=== PATIENT | female | born 1960 | race Caucasian/White ===

== ENCOUNTER → 2016-07-16 | Outpatient (CLI) | payer MEDICARE ==
[~2016-07-16] MED LIST: ALBUTEROL0.09 MG/A1 IH; AUGMENTIN 875-1 EACH PO; BISOPROLOL 5MG T5 MG PO; CELEBREX 200MG200 MG PO; CELEXA10 M1 PO; CELEXA10 MG PO; CLONAZEPAM0.5 M1 PO; CLONIDINE0.1 MG PO; GABAPENTIN100 M1 PO; HYDROCODONE-APA1 TA2 PO; NOMEDS *; PHENERGAN 25MG.25 M1 PO; PREDNISONE50 MG PO; VALIUM 10MG TAB10 MG PO; ZANAFLEX4 MG NG
== END ==
LOC: LAB 07:05
DX: E78.5 Hyperlipidemia, unspecified (principal)

== ENCOUNTER → 2016-10-20 | Outpatient (CLI) | payer MEDICARE, MEDICAID ==
[2016-10-20 12:34] LABS: BUN 12 mg/dL (7-18)
[2016-10-20 12:37] LABS: GFR (ESTIMATED) 57 ML/MIN (59-)
--- NOTE | 2016-10-20 17:15 | RADIOLOGY REPORT PS360 ---
CT CHEST W/ CONTRAST INDICATION: Chest pain, shortness of breath, hemothorax SOB,CP,HEMOTHORAX ORDERING PHYSICIAN: Paulino Mendez MD PATIENT AGE: 56 years COMPARISON: 11/21/2015 TECHNIQUE: Axial images are obtained following the intravenous administration of 75 mL's of Isovue-370 contrast. Sagittal and coronal reformatted images are reviewed as well. FINDINGS: No mediastinal or hilar mass or adenopathy. There is some calcification of the aortic root with minimal ectasia of the proximal ascending aorta measuring up to 3.8 cm. No central pulmonary embolus apparent. No evidence of aortic dissection. Scattered atheromatous calcification noted involving the thoracic aorta. Atheromatous changes involve the ostia of the great vessels but no significant stenosis. There is a small amount of gas in the esophagus which may be seen with gastroesophageal reflux disease. Centrilobular and paraseptal emphysematous changes are noted with some mild biapical fibrosis. There are scattered calcified granulomas. No suspicious pulmonary nodules are evident. No effusions or infiltrates moderate fibrotic changes are present in the lung bases. Upper abdominal images show moderate dilatation of the common bile duct and intrahepatic biliary radicles. Patient has had a prior cholecystectomy. Consider abdomen CT with contrast for further evaluation. MRCP may also be needed. There is thoracolumbar scoliosis convex left. IMPRESSION: 1. Emphysema with old granulomatous disease. 2. Mild ectasia of the ascending aorta with atherosclerotic changes of the aorta. No dissection or aneurysmal dilatation. 3. Small amount of gas in esophagus nonspecific but may be seen with reflux. 4. Intra and extrahepatic biliary dilatation. Consider abdomen CT and possibly MRCP for further evaluation if clinically warranted
== END ==
LOC: RT 12:17
PROVIDERS: Internal Medicine
DX: R06.02 Shortness of breath (principal); R07.9 Chest pain, unspecified; J94.2 Hemothorax
CPT/HCPCS: Q9967

== ENCOUNTER → 2017-01-10 | Outpatient (CLI) | payer MEDICARE, MEDICAID ==
[2017-01-10 19:13] LABS: AMPHETAMINES/METAMPHETAMINES NEGATIVE ng/mL (<1000)
[2017-01-15 18:36] LABS: Alprazolam Negative (Cutoff=100); Benzodiazepines Negative ng/mL (Cutoff=100); Clonazepam Negative (Cutoff=100); Flurazepam Negative (Cutoff=100); Lorazepam Negative (Cutoff=100); Midazolam Negative (Cutoff=100); Temazepam Negative (Cutoff=100); Triazolam Negative (Cutoff=100)
== END ==
LOC: LAB 17:38
PROVIDERS: Emergency Medicine
DX: Z79.899 Other long term (current) drug therapy (principal)
CPT/HCPCS: G0480

== ENCOUNTER 2017-01-26 11:39 | Day surgery (SDC) | payer MEDICARE, MEDICAID ==
[~2017-01-26] VITALS: Ht 172.7 cm; Wt 61.2 kg
[2017-01-26 12:11] LABS: HEMOGLOBIN 12.8 g/dL (12.2-16.2); LYMPH # 1.6 K/mm3 (0.7-4.5); LYMPH % 39.7 % (10-50.0)
[2017-01-26 12:21] LABS: BUN 10 mg/dL (7-18)
[2017-01-26 12:30] LABS: GFR (ESTIMATED) 57 ML/MIN (59-)
--- NOTE | 2017-01-26 14:29 | Anesthesia Record ---
Anesthesia Record Part I Total IV fluids: 900 EBL (ml): 10 Urine Output: 0 B/P: 133/73 % SaO2: 96 Pulse: 76 Resps: 10 Temp: 97.2 Patient is: Awake, Stable Stable to PACU at: 1421 at 1427
--- NOTE | 2017-01-26 14:30 | Anesthesia Record ---
Anesthesia Record Part II Discharge time: 1451 Destination: Same day surgery PACU nurse assessment review? Yes Patient is: Awake, Stable Anesthesia complications? No at 1430
[2017-01-26 16:30] VITALS: BP 132/75
--- NOTE | 2017-01-27 09:40 | Operative Note ---
Other ENT Procedure Date of Procedure: 01/26/17 Time of Procedure: 1200 Procedure performed: 1.Microlaryngoscopy with removal of right vocal cord polyp 2. Esophagoscopy and dilatation of cervical esophageal stricture Pre-op diagnosis: 1. Hoarseness 2. Dysphagia Post-op diagnosis: same Surgeon: Mirza Arroyo Anesthesia: general Pre-procedure antibiotics: Ancef 1 gm Pre-procedure steroid: Decadron 12 mg Description of procedure: With the patient under general anesthesia, the anterior commissure laryngoscope and telescope were used to expose the larynx. There was polypoid disease involving both vocal cords worse on the RIGHT side. Using the micro-laryngoscopy instruments the polyps were removed entirely from the RIGHT vocal cord. They were Submitted. Bleeding was less than 1 mL and stopped with topical epinephrine on a cottonoid. The the hypopharynx supraglottic and subglottic portions of the larynx were normal. Using the12 x 14 x 30 rigid esophagoscope, the cricopharyngeus was identified. There was a tight stricture just below the cricopharyngeus. Using the wire dilators the stricture was dilated in the esophagus scope could then be passed into the cervical esophagus. There were no other abnormalities in the cervical esophagus and the thoracic portion of the esophagus was normal as well. There was no bleeding the patient tolerated the procedure well and was sent to recovery in good general condition. EBL (ml): 0 at 0939
== END 2017-01-26 15:25 | disposition home or self-care (01) ==
LOC: SDC 11:39
PROVIDERS: Otolaryngology
PROC: 0CBV8ZZ Excision of Left Vocal Cord, Via Natural or Artificial Opening Endoscopic (ICD-10-PCS; 2017-01-26)
PROC: 0D718ZZ Dilation of Upper Esophagus, Via Natural or Artificial Opening Endoscopic (ICD-10-PCS; principal; 2017-01-26 13:00)
DX: R49.0 Dysphonia (principal); R13.19 Other dysphagia; K22.2 Esophageal obstruction
CPT/HCPCS: J0330; J2405

== ENCOUNTER → 2017-03-15 | Outpatient (CLI) | payer MEDICARE ==
--- NOTE | 2017-03-17 11:12 | RADIOLOGY REPORT PS360 ---
MRI-L-SPINE W/O, MRI-3D RENDERING/MYELOGRAM HISTORY: Low back pain with bilateral hip pain, left-sided low back pain and left leg numbness and pain LUMBAR PAIN ORDERING PHYSICIAN: Rey Chauhan MD PATIENT AGE: 56 years COMPARISON: 02/06/2016 TECHNIQUE: Standard multiplanar multiecho sequences are performed without contrast. 3-D MIP and myelographic images are also rendered and reviewed FINDINGS: There is normal alignment. The spinal cord ends at the T12 level. L1-L2 has an unremarkable appearance. L2-L3: Minimal facet and ligamentum flavum hypertrophy with mild right lateral recess narrowing L3-L4: Degenerative disc disease with bulging disc asymmetric towards the right along with facet and ligamentum flavum hypertrophy. There is moderate right lateral recess and foraminal narrowing. Severe degenerative disc disease is present at this level with type I endplate changes. There is minimal anterolisthesis of L3 on L4 2 mm. L4-L5: Severe degenerative disc disease with bulging disc which is eccentric towards the left along with facet and ligamentum flavum hypertrophy with severe left-sided foraminal narrowing. There are endplate changes at this level as well. There is a transitional segment at L5 as previously described. L5-S1 has an unremarkable appearance. Incidental note made of dilated common bile duct. IMPRESSION: 1. Degenerative disc disease L3-L4 with bulging disc asymmetric towards the right along with facet and ligamentum flavum hypertrophy. There is moderate right lateral recess and foraminal narrowing. Severe degenerative disc disease is present at this level with type I endplate changes. There is minimal anterolisthesis of L3 on L4 2 mm. 2. Severe degenerative disc disease L4-L5 with bulging disc which is eccentric towards the left along with facet and ligamentum flavum hypertrophy with severe left-sided foraminal narrowing. There are endplate changes at this level as well. Overall not significant changed. IMPRESSION: 1.
== END ==
LOC: RAD 10:47
DX: M54.5 Low back pain (principal)

== ENCOUNTER → 2017-03-21 | Outpatient (CLI) | payer MEDICARE ==
[2017-03-21 15:58] LABS: LYMPH # 1.6 K/mm3 (0.7-4.5); LYMPH % 41.9 % (10-50.0)
[2017-03-21 17:27] LABS: BUN 9 mg/dL (7-18)
[2017-03-21 18:18] LABS: GFR (ESTIMATED) 65 ML/MIN (59-)
== END ==
LOC: LAB 15:23 → RT 15:23
PROVIDERS: Otolaryngology
DX: J38.1 Polyp of vocal cord and larynx (principal); R13.10 Dysphagia, unspecified; M62.838 Other muscle spasm; Z01.818 Encounter for other preprocedural examination

== ENCOUNTER 2017-03-24 08:59 | Day surgery (SDC) | payer MEDICARE ==
[~2017-03-24] VITALS: Ht 172.7 cm; Wt 61.2 kg
--- NOTE | 2017-03-24 10:57 | Anesthesia Record ---
Anesthesia Record Part II Discharge time: 1125 Destination: Same day surgery PACU nurse assessment review? Yes Patient is: Awake, Stable Anesthesia complications? No at 1055
--- NOTE | 2017-03-24 10:57 | Anesthesia Record ---
Anesthesia Record Part I Total IV fluids: 1000 EBL (ml): 0 Urine Output: 0 B/P: 126/60 % SaO2: 96 Pulse: 65 Resps: 12 Temp: 97.2 Patient is: Awake, Stable Stable to PACU at: 1055 at 1056
--- NOTE | 2017-03-24 13:02 | Operative Note ---
Laryngoscope Date of Procedure: 03/24/17 Surgeon: Mirza Arroyo Procedure performed: 1.Microlaryngoscopy with removal of laryngeal polyp 2.esophagoscopy with dilitation over wire dilator Anesthesia: General Pre-operative dx: 1. Laryngeal polyp 2. Hoarseness 3. Dysphagia Post-operative dx: same Operative procedure: With patient under general anesthesia the anterior commissure laryngoscope was used to examine larynx and hypopharynx. There were no abnormalities in the hypopharynx, supraglottic larynx or subglottic larynx. The patient did however have a polypoid lesion at the anterior commissure which was attached to the anterior end of the RIGHT vocal cord. Using microlaryngoscopy cupped forceps, the lesion was removed in entirety and submitted. Bleeding was stopped with topical epinephrine on a cottonoid. Blood loss was less than 1 mL.The larynx was irrigated with saline. And then the scope was removed. Photographs were taken with the 10 mm endoscope. Using the 12 x 16 x 30 cm esophagoscope the cricopharyngeus muscle was examined. It was very tight and the wire esophageal dilators were placed. And the cricopharyngeus muscle was dilated over the wire dilators. There was no bleeding. The cervical and thoracic portions of the esophagus were normal. The patient tolerated the procedure well and was sent to recovery in good general condition. EBL (ml): 1 Complications: None at 1302
[2017-03-24 13:04] VITALS: BP 144/77
== END 2017-03-24 11:56 | disposition home or self-care (01) ==
LOC: SDC 08:59
PROVIDERS: Otolaryngology
PROC: 0CBS8ZX Excision of Larynx, Via Natural or Artificial Opening Endoscopic, Diagnostic (ICD-10-PCS; 2017-03-24)
PROC: 0D758ZZ Dilation of Esophagus, Via Natural or Artificial Opening Endoscopic (ICD-10-PCS; principal; 2017-03-24 08:15)
DX: J38.1 Polyp of vocal cord and larynx (principal); R49.0 Dysphonia; R13.10 Dysphagia, unspecified; K22.2 Esophageal obstruction
CPT/HCPCS: J0330; J2405

== ENCOUNTER → 2017-04-26 | Outpatient (CLI) | payer MEDICARE ==
[2017-04-26 20:24] LABS: AMPHETAMINES/METAMPHETAMINES NEGATIVE ng/mL (<1000)
== END ==
LOC: LAB 18:34
PROVIDERS: Emergency Medicine
DX: Z79.899 Other long term (current) drug therapy (principal)